=== PATIENT | female | born 1955 | race Two or more races ===

== ENCOUNTER 2020-04-13 06:15 | Day surgery (SDC) | payer OTHER ==
[~2020-04-13 06:15] MED LIST: COZAAR25 MG PO
[2020-04-13] MEDS ORDERED: ULTRACET PO (11:16)
[2020-04-13] MEDS ORDERED: MACROBID 100 M100 MG PO (11:16)
== END 2020-04-13 15:50 | disposition home or self-care (01) ==
LOC: CIR.AMB 06:15
PROVIDERS: ATTEND Obstetrics & Gynecology Gynecology
DX: N81.11 Cystocele, midline (principal); B96.29 Other Escherichia coli [E. coli] as the cause of diseases classified elsewhere; Z20.822 Contact with and (suspected) exposure to COVID-19